=== PATIENT | female | born 1990 | race African-American/Black ===

== ENCOUNTER 2018-12-07 20:19 | Emergency (ER) | payer OTHER ==
[~2018-12-07] VITALS: Ht 165.1 cm; Wt 100.0 kg
[2018-12-07] MEDS ORDERED: BACLOFEN 10 MG TABLET PO ONE (22:15)
[2018-12-07] MEDS ORDERED: LIDOCAINE 5% TRANSDERMAL PATCH TD ONE (22:15)
[2018-12-07] MEDS ORDERED: KETOROLAC TROMETHAMINE 30 MG/ML VIAL IM ONE (22:15)
[2018-12-07] MEDS ORDERED: ACETAMINOPHEN 500 MG TABLET PO ONE (22:15)
[2018-12-07] MEDS ORDERED: HYDROCODONE/ACETAMINOPHEN 5-325 MG TABLET PO ONE (23:00)
[2018-12-08] MEDS ORDERED: MORPHINE SULFATE 4 MG/ML SYRINGE IM ONE (01:00)
[2018-12-08 01:35] VITALS: BP 120/68
== END 2018-12-08 01:35 | disposition home or self-care (01) ==
LOC: EMS 20:21
DX: S39.012A Strain of muscle, fascia and tendon of lower back, initial encounter (principal); F17.210 Nicotine dependence, cigarettes, uncomplicated; W01.0XXA Fall on same level from slipping, tripping and stumbling without subsequent striking against object, initial encounter; Y93.89 Activity, other specified; Y92.89 Other specified places as the place of occurrence of the external cause; Y99.8 Other external cause status
CPT/HCPCS: 72100; 81025; 96372; 99284; 99406; J1885; J2270